=== PATIENT | female | born 2000 | race Hispanic/Latino ===

== ENCOUNTER 2025-08-08 01:35 | Emergency (ER) | payer SELFPAY ==
[~2025-08-08] VITALS: Ht 157.5 cm; Wt 72.7 kg
[2025-08-08] MEDS: UNRESOLVED CLARIFICATION ENTRY XX STA (01:54)
[2025-08-08 02:05] LABS: VENOUS BASE EXCESS -3.1 (-2.0-2.0); VENOUS HCO3 23.8 MMOL/L (23.0-27.0); VENOUS O2 SATURATION 82.1 % (60.0-80.0); VENOUS PARTIAL PRESSURE CO2 49.3 mmHg (38.0-50.0); VENOUS PARTIAL PRESSURE O2 50.8 mmHg (30.0-50.0); VENOUS PH 7.301 UNITS (7.330-7.430); VENOUS STANDARD HCO3 21.6 MMOL/L; VENOUS TOTAL CO2 25.3 MMOL/L (24.0-28.0)
[2025-08-08] MEDS: ONDANSETRON 4MG/2ML VIAL IV ONE (02:09)
[2025-08-08] MEDS: NS (Normal Saline) 0.9% 1,000 ML IV ONE (02:09)
[2025-08-08] MEDS: MORPHINE 4 MG/ML 1 ML VIAL IV ONE ×2 (02:10→08:22)
[2025-08-08 02:11] LABS: BASO # 0.1 10^3/uL (0.0-0.2); BASO % 0.3 % (0.0-1.0); EOS # 0.1 10^3/uL (0.0-0.5); EOS % 0.4 % (0.0-3.0); LYMPH # 2.1 10^3/uL (1.5-5.0); LYMPH % 9.9 % (24.0-44.0); MONO # 1.0 10^3/uL (0.0-0.8); MONO % 4.9 % (2.0-8.0); NEUTROPHILS # 17.3 10^3/uL (1.5-8.5); NEUTROPHILS % 83.9 % (36.0-66.0); PLATELET COUNT, AUTOMATED 289 10^3/uL (150-450)
[2025-08-08] MEDS ORDERED: ISOVUE-370 76% 100 ML VIAL As Ordered ONE (02:19)
[2025-08-08 02:33] LABS: ETHYL ALCOHOL (ETHANOL) 0.156 % (0.000-0.010); INR 0.95
[2025-08-08 02:35] LABS: ALT/SGPT 39 U/L (7.0-40); AST/SGOT 31 U/L (<34); CALCIUM LEVEL 8.5 MG/DL (8.5-10.1); CARBON DIOXIDE LEVEL 24 MMOL/L (20-31); CHLORIDE LEVEL 106 MMOL/L (98-107); CREATININE FOR GFR 0.72 MG/DL (0.55-1.30); GLOMERULAR FILTRATION RATE > 90.0 (>60); POTASSIUM SERUM 3.8 MMOL/L (3.5-5.1); SODIUM LEVEL 140 MMOL/L (136-145)
[2025-08-08 04:28] LABS: APPEARANCE, URINE CLEAR (CLEAR); BACTERIA, URINE AUTO NEGATIVE (NEGATIVE); BILIRUBIN, URINE AUTO NEGATIVE (NEGATIVE); BLOOD, URINE BLOOD NEGATIVE (NEGATIVE); GLUCOSE, URINE (UA) AUTO NEGATIVE (NEGATIVE); KETONE, URINE AUTO NEGATIVE (NEGATIVE); LEUKOCYTE ESTERASE, URINE AUTO NEGATIVE (NEGATIVE); NITRITE, URINE AUTO NEGATIVE (NEGATIVE); PROTEIN, URINE AUTO NEGATIVE (NEGATIVE); RBC, URINE AUTO 0 /HPF (0-3); SPECIFIC GRAVITY URINE AUTO 1.040 (1.002-1.035); SQUAMOUS EPITHELIAL CELL UR AU 9 /HPF (0-6); UROBILINOGEN, URINE AUTO 0.2 mg/dL (0.0-2.0); WBC, URINE AUTO 1 /HPF (0-3)
[2025-08-08] MEDS: LIDOCAINE 2% MDV 20 ML VIAL SC ONE (04:52)
[2025-08-08 04:54] LABS: AMPHETAMINES LEVEL URINE NEGATIVE (NEGATIVE); BARBITURATES URINE NEGATIVE (NEGATIVE); BENZODIAZEPINES URINE NEGATIVE (NEGATIVE); CANNABINOIDS URINE NEGATIVE (NEGATIVE); COCAINE METABOLITE URINE NEGATIVE (NEGATIVE); METHADONE URINE NEGATIVE (NEGATIVE); PHENCYCLIDINE URINE NEGATIVE (NEGATIVE)
[2025-08-08 04:56] LABS: OPIATES URINE POSITIVE (NEGATIVE)
[2025-08-08] MEDS: NEOSPORIN OINT 0.9 GM PKT TOP ONE (05:51)
[2025-08-08] MEDS: NORCO 5/325MG TABLET (HOME DOSE PACK) PO ONE (05:59)
[2025-08-08] MEDS ORDERED: PERC5TAB12 PO (09:48)
[2025-08-08 10:00] VITALS: BP 104/62; TEMP 97.7; O2SAT 96
[2025-08-08] MEDS: ONDANSETRON 4MG ORAL DISINTEGRATING TAB PO ONE (10:17)
== END 2025-08-08 10:20 | disposition home or self-care (01) ==
LOC: M ED 01:35
DX: S30.11XA Contusion of abdominal wall, initial encounter (principal); S92.154A Nondisplaced avulsion fracture (chip fracture) of right talus, initial encounter for closed fracture; S92.211A Displaced fracture of cuboid bone of right foot, initial encounter for closed fracture; S81.011A Laceration without foreign body, right knee, initial encounter; V47.5XXA Car driver injured in collision with fixed or stationary object in traffic accident, initial encounter; H05.221 Edema of right orbit; R60.0 Localized edema; Z79.899 Other long term (current) drug therapy; Y92.009 Unspecified place in unspecified non-institutional (private) residence as the place of occurrence of the external cause; Y93.89 Activity, other specified; Y99.9 Unspecified external cause status
CPT/HCPCS: 12002; 70450; 71260; 72125; 73090; 73552; 73564; 73590; 73610; 73700; 74177; 80047; 80048; 80076; 80307; 81001; 82077; 82150; 82803; 83605; 83690; 85025; 85610; 85730; 86850; 86900; 86901; 93041; 94760; 96361; 96366; 96374; 96375; 99285; J2405; Q9967